=== PATIENT | male | born 1975 | race Caucasian/White ===

== ENCOUNTER 2019-01-14 09:01 | Emergency (ER) | payer OTHER ==
[~2019-01-14] VITALS: Ht 175.3 cm; Wt 90.7 kg
[2019-01-14 09:07] VITALS: BP 144/92
--- NOTE | 2019-01-14 09:52 | PHYS DOC ---
Past Medical History Additional Past Medical Histor: PULMONARY EMBOLISM Past Surgical History: No Surgical History Alcohol Use: Occasionally Drug Use: None Adult General Chief Complaint Chief Complaint: LOWER EXT PAIN [facility] HPI Patient is a 43 year old male who presents with complaining of left leg pain. Patient states for the last 3 days he has had painful area in medial side of left leg with redness and erythema and edema. Patient rated his pain 5 with non- weight bearing position that increasing to 7 or 8 with standing up and activity. Patient had history of PE and use to take Xarelto that was stopped by primary care physician. Patient denies focal neuro deficit, fever and chills, injury. Review of Systems Review of Systems Constitutional: Denies fever or chills [] Eyes: Denies change in visual acuity, redness, or eye pain [] HENT: Denies nasal congestion or sore throat [] Respiratory: Denies cough or shortness of breath [] Cardiovascular: No additional information not addressed in HPI [] GI: Denies abdominal pain, nausea, vomiting, bloody stools or diarrhea [] : Denies dysuria or hematuria [] Musculoskeletal: Denies back pain, reports joint pain [] Integument: Denies rash or skin lesions [] Neurologic: Denies headache, focal weakness or sensory changes [] Endocrine: Denies polyuria or polydipsia [] All other systems were reviewed and found to be within normal limits, except as documented in this note. Allergies Allergies Allergies Coded Allergies Type Severity Reaction Last Updated Verified No Known Drug Allergies 01/14/19 No Physical Exam Physical Exam Constitutional: Well developed, well nourished, mild distress, non-toxic appearance. [] HENT: Normocephalic, atraumatic. Eyes: PERRLA, EOMI, conjunctiva normal, no discharge. [] Neck: Normal range of motion, no tenderness, supple, no stridor. [] Cardiovascular:Heart rate regular rhythm, no murmur [] Lungs & Thorax: Bilateral breath sounds clear to auscultation [] Skin: Warm, dry, no erythema, no rash. [] Back: No tenderness, no CVA tenderness. [] Extremities: 5 x 5 cm area of spiral bulging in left upper leg with tenderness and erythema no neurovascular deficit, normal range of motion Neurologic: Alert and oriented X 3, no focal deficits noted. [] Psychologic: Affect normal, judgement normal, mood normal. [] Current Patient Data Vital Signs Vital Signs Date Time Temp Pulse Resp B/P (MAP) Pulse Ox O2 Delivery O2 Flow Rate FiO2 01/14/19 09:07 98.4 80 18 144/92 (109) 97 Room Air 98.4 EKG EKG [] Radiology/Procedures Radiology/Procedures [][facility] [address] [place] [address] IMAGING REPORT Signed PATIENT: STEFANY GUILLEN ACCOUNT: [id number] : 1975 LOCATION: ER AGE: 43 SEX: M EXAM STATUS: REG ER ORD. PHYSICIAN: MILADY RUBALCAVA MD REASON: pain and area of tenderness in medial leg PROCEDURE: VENOUS LOWER EXTREMITY LEFT Left lower extremity venous duplex study 01/14/2019 Clinical History: Lower extremity pain Technique: Using a combination of real time ultrasound imaging and color-flow and pulse Doppler imaging techniques, including spectral analysis, graded compression and augmentation, duplex evaluation of the deep venous system of the left lower extremity was performed. Multiple images were obtained. Findings: There is no sonographic evidence of deep venous thrombosis involving the visualized deep venous structures of the left lower extremity. Exam is however positive for superficial venous thrombosis involving the left saphenous vein within the distal thigh, extending distally to the ankle with clot seen in associated with varicose veins. Impression: 1. No evidence of deep venous thrombosis 2. Exam is positive for superficial venous thrombosis involving left saphenous vein and associated varicosities Electronically signed by: Sulema Blackman MD (01/14/2019 10:05 AM) [id number] DICTATED and SIGNED BY: SULEMA BLACKMAN MD DATE: 01/14/19 1005 Course & Med Decision Making Course & Med Decision Making Pertinent Imaging studies reviewed. (See chart for details) Evaluation of patient in ER showed 43-year-old male patient with history of DVT and PE presented with superficial venous thrombosis without deep vein thrombosis. Patient was informed about diagnosis and no for taking anticoagulation. I've spoken with the patient and/or caregivers. I've explained the patient's condition, diagnosis and treatment plan based on information available to me at this time. I've answered the patient's and/or caregivers questions and addressed any concerns. The patient and/or caregivers have a good understanding the patient's diagnosis, condition and treatment plan as can be expected at this point. Vital signs have been stabilized. The patient's condition is stable for discharge from the emergency department. The patient will pursue further outpatient evaluation with her primary care provider or other designated consulting physician as outlined in the discharge instructions. Patient and/or caregivers are agreeable to this plan of care and follow-up instructions have been explained in detail. The patient and/or caregivers have received these instructions in written format and expressed understanding of these discharge instructions. The patient and her caregivers are aware that if any significant change in condition or worsening of symptoms should prompt him to immediately return to this of the closest emergency department. If an emergent department is not readily available I would encourage him to call 911. Dragon Disclaimer Dragon Disclaimer This electronic medical record was generated, in whole or in part, using a voice recognition dictation system. Departure Departure Impression: Primary Impression: Acute superficial venous thrombosis of left lower extremity Disposition: HOME, SELF-CARE (at 1017) Condition: STABLE Referrals: NON,STAFF (PCP) Patient Instructions: Varicose Veins, Venous Thromboembolism, Prevention Additional Instructions: Apply moist heat pad on affected area Follow-up with your primary care physician in 3-5 days Return to ER if not getting better Scripts Tramadol Hcl (ULTRAM) 50 Mg Tablet 50 MG PO Q6HRS PRN for PAIN, #14 TAB 0 Refills Prov: MILADY RUBALCAVA MD 01/14/19 Naproxen (NAPROSYN) 500 Mg Tablet 1 TAB PO BID for pain, #20 TAB Prov: MILADY RUBALCAVA MD 01/14/19 MILADY RUBALCAVA MD Jan 14, 2019 09:52
--- NOTE | 2019-01-14 10:08 | RAD ---
Left lower extremity venous duplex study 01/14/2019 Clinical History: Lower extremity pain Technique: Using a combination of real time ultrasound imaging and color-flow and pulse Doppler imaging techniques, including spectral analysis, graded compression and augmentation, duplex evaluation of the deep venous system of the left lower extremity was performed. Multiple images were obtained. Findings: There is no sonographic evidence of deep venous thrombosis involving the visualized deep venous structures of the left lower extremity. Exam is however positive for superficial venous thrombosis involving the left saphenous vein within the distal thigh, extending distally to the ankle with clot seen in associated with varicose veins. Impression: 1. No evidence of deep venous thrombosis 2. Exam is positive for superficial venous thrombosis involving left saphenous vein and associated varicosities Electronically signed by: Nish Aguiar MD (01/14/2019 10:05 AM) [id number]
[2019-01-14] MEDS ORDERED: TRAM-48 PO (10:20)
[2019-01-14] MEDS ORDERED: NAPR-683 PO (10:20)
== END 2019-01-14 10:36 | disposition home or self-care (01) ==
LOC: ER 09:01
DX: I82.812 Embolism and thrombosis of superficial veins of left lower extremity (principal)
CPT/HCPCS: 93971; 99284-25